=== PATIENT | female | born 1935 | race Caucasian/White ===

== ENCOUNTER 2023-02-15 22:57 | Inpatient (IN) | payer MEDICARE, OTHER ==
[~2023-02-15] VITALS: Ht 152.4 cm; Wt 90.7 kg
[2023-02-15] MEDS ORDERED: CEFEPIME 1 GM in IV D5W 50 ML IV ONE (23:30)
[2023-02-15] MEDS ORDERED: IV NS 0.9% 1,000 ML BAG IV ONE (23:30)
[2023-02-15] MEDS ORDERED: VANCOMYCIN 1 GM in IV D5W 250 ML IV ONE (23:30)
[2023-02-15 23:41] LABS: BASOPHILS # (AUTO) 0.1 K/uL (0.0-0.2); BASOPHILS % (AUTO) 0.4 % (0.0-2.0); HEMATOCRIT 33 % (33-45); HEMOGLOBIN 10.1 g/dL (11.5-14.8); LYMPHOCYTES # (AUTO) 1.6 K/uL (0.8-4.8); LYMPHOCYTES % (AUTO) 14.1 % (20.0-44.0); MEAN CORPUSCULAR HEMOGLOBIN 30 PG (26.0-33.0); MEAN CORPUSCULAR HGB CONC 30 g/dl (31.0-36.0); MEAN CORPUSCULAR VOLUME 99 fL (82-100); MONOCYTES # (AUTO) 0.8 K/uL (0.1-1.30); MONOCYTES % (AUTO) 7.2 % (2.0-12.0); NEUTROPHILS # (AUTO) 9.1 K/uL (1.8-8.9); NEUTROPHILS % (AUTO) 78.3 % (43.0-81.0); PLATELET COUNT (AUTO) 260 K/uL (150-450); RED BLOOD CELL COUNT(AUTO) 3.36 MIL/uL (4.0-5.2); RED CELL DISTRIBUTION WIDTH 22.4 % (11.5-15.0); WHITE BLOOD COUNT (AUTO) 11.7 K/uL (4.3-11.0)
[2023-02-15] MEDS ORDERED: CEFEPIME 1 GM VIAL ONE (23:47)
[2023-02-15 23:55] LABS: INR 1.09 (0.91-1.10); PARTIAL THROMBOPLASTIN TIME 30.4 SEC (24.3-34.3); PROTHROMBIN TIME 11.5 SECS (9.2-11.1)
[2023-02-15 23:58] LABS: CALCIUM, SERUM 7.6 mg/dL (8.5-10.1); CARBON DIOXIDE 22 mmol/L (21-32); CHLORIDE 107 mmol/L (98-107); CREATININE 1.1 mg/dL (0.6-1.3); GLUCOSE 143 mg/dL (74-106); POTASSIUM 5.8 mmol/L (3.5-5.1); SODIUM SERUM 133 mmol/L (136-145); UREA NITROGEN, BLOOD 39 mg/dL (7-18)
[2023-02-16 00:03] LABS: LACTIC ACID 0.8 mmol/L (0.4-2.0)
[2023-02-16 00:11] LABS: ALANINE AMINOTRANSFERASE 46 U/L (12-78); ALBUMIN 1.6 g/dL (3.4-5.0); ALKALINE PHOSPHATASE 194 U/L (46-116); ASPARTATE AMINOTRANSFERASE 121 U/L (15-37); BILIRUBIN,DIRECT 0.1 mg/dL (0.0-0.2); BILIRUBIN,TOTAL 0.3 mg/dL (0.2-1.0); TOTAL PROTEIN, SERUM 8.2 g/dL (6.4-8.2)
[2023-02-16] MEDS ORDERED: ONDANSETRON HCL/PF 4 MG/2 ML VIAL IVP PRN (01:00)
[2023-02-16] MEDS ORDERED: MAG HYDROX/AL HYDROX/SIMETH 30 ML UDC PO PRN (01:00)
[2023-02-16] MEDS ORDERED: IV NS 0.9% 1,000 ML IV PRN (01:00)
[2023-02-16] MEDS ORDERED: ACETAMINOPHEN 325 MG TABLET PO PRN (01:00)
[2023-02-16] MEDS ORDERED: MAGNESIUM HYDROXIDE 30 ML UDC PO PRN (01:00)
[2023-02-16] MEDS ORDERED: Z GUARD REMEDY 4 OZ OINT TP PRN (01:00)
[2023-02-16] MEDS ORDERED: VANCOMYCIN 500 MG VIAL ONE (01:01)
[2023-02-16 02:26] LABS: APPEARANCE,URINE CLEAR (CLEAR); BILIRUBIN,URINE NEGATIVE (NEGATIVE); BLOOD, URINE TRACE-INTA Ery/uL (NEGATIVE); COLOR,URINE YELLOW (YELLOW); KETONES,URINE NEGATIVE (NEGATIVE); LEUKOCYTE ESTERASE ,URINE NEGATIVE (NEGATIVE); NITRITE, URINE NEGATIVE (NEGATIVE); PROTEIN,URINE 1+ mg/dl (NEGATIVE); UGLUCOSE NEGATIVE (NEGATIVE)
[2023-02-16 02:49] LABS: ADD URINE CULTURE NO; BACTERIA,URINE None seen /HPF (None Seen); MUCUS,URINE Moderate /LPF (None Seen); RBC,URINE 0-2 /HPF (0-2); WBC,URINE 0-2 /HPF (0-3)
[2023-02-16] MEDS ORDERED: ALBUTEROL FS 2.5 MG/3 ML VIAL.NEB NEB ONE (04:30)
[2023-02-16] MEDS ORDERED: IPRATROPIUM NEB FS 0.5 MG/2.5 ML AMPUL.NEB NEB ONE (04:30)
[2023-02-16 04:46] LABS: POTASSIUM 5.4 mmol/L (3.5-5.1)
[2023-02-16] MEDS ORDERED: ALBUTEROL FS 2.5 MG/3 ML VIAL.NEB ONE (04:46)
[2023-02-16 04:51] VITALS: O2SAT 100
[2023-02-16 05:06] VITALS: O2SAT 95
[2023-02-16] MEDS ORDERED: FUROSEMIDE 20 MG/2 ML VIAL IV ONE (06:00)
[2023-02-16] MEDS ORDERED: FUROSEMIDE 20 MG/2 ML VIAL ONE (07:16)
[2023-02-16 07:17] LABS: ABG BASE EXCESS -1.4 mmol/L; ABG OXYGEN SATURATION 94.6 % (92.0-98.5); ABG PCO2 36.1 mmHg (35.0-45.0); ABG PH 7.418 (7.350-7.450); ABG PO2 73.5 mmHg (75.0-100.0); ABG TOTAL HEMOGLOBIN 10.9 G/dL (12.0-16.0); COHb 0.3 % (0.5-1.5); MetHb 0.4 % (0.0-1.5); O2Hb 93.9 % (94.0-97.0); SITE, ABG Right Radial; VENT MODE, BG SM 8 LPM
[2023-02-16] MEDS ORDERED: ACET-2605 GT (08:23)
[2023-02-16] MEDS ORDERED: ACET-868 GT (08:23)
[2023-02-16] MEDS ORDERED: DOCU50LI GT (08:23)
[2023-02-16] MEDS ORDERED: VORI200T4 GT (08:23)
[2023-02-16] MEDS ORDERED: FERR300L GT (08:23)
[2023-02-16] MEDS ORDERED: LACT-209 GT (08:23)
[2023-02-16] MEDS ORDERED: MERO1PIG IV (08:23)
[2023-02-16] MEDS ORDERED: ALBU2.5V38 IH (08:23)
[2023-02-16] MEDS ORDERED: GLUC1KIT IM (08:23)
[2023-02-16] MEDS ORDERED: EPOE200011 SQ (08:23)
[2023-02-16] MEDS ORDERED: PANT40SU2 GT (08:23)
[2023-02-16] MEDS ORDERED: SENN-261 GT (08:23)
[2023-02-16] MEDS ORDERED: DEXTROSE 50%-WATER 50 ML DISP.SYRIN IV PRN (10:00)
[2023-02-16] MEDS ORDERED: SENNOSIDES 8.6 MG TABLET GT PRN (10:30)
[2023-02-16 11:47] LABS: CALCIUM, SERUM 7.4 mg/dL (8.5-10.1)
[2023-02-16] MEDS: BLOOD SUGAR DIAGNOSTIC 1 EACH STRIP IN SCH ×3 (12:18→23:55)
[2023-02-16] MEDS ORDERED: DOCUSATE SODIUM 100 MG CAPSULE PO ONE (21:39)
[2023-02-16] MEDS: DOCUSATE SODIUM LIQ 100 MG/10 ML UDC GT SCH (21:48)
[2023-02-16] MEDS ORDERED: ZOLPIDEM TARTRATE 5 MG TABLET PO PRN (22:00)
[2023-02-16] MEDS ORDERED: DEXTROSE 50%-WATER 50 ML DISP.SYRIN ONE (23:56)
[2023-02-17] MEDS: IV NS 0.9% 500 ML IV PRN ×2 (00:08→16:01)
[2023-02-17] MEDS ORDERED: CEFEPIME 1 GM VIAL ONE (00:19)
[2023-02-17] MEDS: CEFEPIME 1 GM in IV D5W 50 ML IV SCH (00:26)
[2023-02-17] MEDS ORDERED: VANCOMYCIN 500 MG VIAL ONE (00:30)
[2023-02-17] MEDS: VANCOMYCIN HCL 0.75 GM in IV D5W 250 ML IV SCH (00:40)
[2023-02-17 05:53] LABS: BASOPHILS # (AUTO) 0.1 K/uL (0.0-0.2); BASOPHILS % (AUTO) 1.2 % (0.0-2.0); HEMATOCRIT 30 % (33-45); HEMOGLOBIN 9.2 g/dL (11.5-14.8); LYMPHOCYTES # (AUTO) 0.8 K/uL (0.8-4.8); LYMPHOCYTES % (AUTO) 11.5 % (20.0-44.0); MEAN CORPUSCULAR HEMOGLOBIN 31 PG (26.0-33.0); MEAN CORPUSCULAR HGB CONC 31 g/dl (31.0-36.0); MEAN CORPUSCULAR VOLUME 98 fL (82-100); MONOCYTES # (AUTO) 0.4 K/uL (0.1-1.30); NEUTROPHILS # (AUTO) 5.7 K/uL (1.8-8.9); NEUTROPHILS % (AUTO) 81.3 % (43.0-81.0); PLATELET COUNT (AUTO) 237 K/uL (150-450); RED BLOOD CELL COUNT(AUTO) 3.02 MIL/uL (4.0-5.2)
[2023-02-17 06:02] LABS: CALCIUM, SERUM 7.2 mg/dL (8.5-10.1); MAGNESIUM 2.3 mg/dL (1.8-2.4); PHOSPHORUS 4.1 mg/dL (2.5-4.9); POTASSIUM 4.5 mmol/L (3.5-5.1)
[2023-02-17] MEDS: BLOOD SUGAR DIAGNOSTIC 1 EACH STRIP IN SCH ×3 (06:10→17:54)
[2023-02-17 06:19] LABS: THYROID STIMULATING HORMONE 2.155 uIU/mL (0.358-3.74)
[2023-02-17] MEDS: FERROUS SULFATE UDC 300 MG/5 ML UDC GT SCH (10:06)
[2023-02-17] MEDS: INSULIN REGULAR, HUMAN 100 UNIT/ML 3 ML VIAL SQ PRN ×2 (12:12→17:55)
[2023-02-17] MEDS: GLUCERNA 1.2 1,000 ML BOTTLE NG PRN (12:14)
[2023-02-17] MEDS ORDERED: IV NS 0.9% 1,000 ML IV PRN (16:06)
[2023-02-17 20:00] VITALS: BP 126/47; TEMP 97.1; O2SAT 98
[2023-02-17] MEDS: DOCUSATE SODIUM LIQ 100 MG/10 ML UDC GT SCH (22:16)
[2023-02-18] MEDS: CEFEPIME 1 GM in IV D5W 50 ML IV SCH (01:10)
[2023-02-18] MEDS: VANCOMYCIN HCL 0.75 GM in IV D5W 250 ML IV SCH (02:15)
[2023-02-18 04:00] VITALS: BP 144/55; TEMP 98.1; O2SAT 100
[2023-02-18] MEDS: BLOOD SUGAR DIAGNOSTIC 1 EACH STRIP IN SCH ×4 (05:56→17:05)
[2023-02-18 06:20] LABS: BASOPHILS % (AUTO) 0.6 % (0.0-2.0); HEMATOCRIT 29 % (33-45); LYMPHOCYTES # (AUTO) 0.9 K/uL (0.8-4.8); LYMPHOCYTES % (AUTO) 14.5 % (20.0-44.0); MEAN CORPUSCULAR HEMOGLOBIN 31 PG (26.0-33.0); MEAN CORPUSCULAR HGB CONC 31 g/dl (31.0-36.0); MEAN CORPUSCULAR VOLUME 100 fL (82-100); MONOCYTES # (AUTO) 0.5 K/uL (0.1-1.30); MONOCYTES % (AUTO) 7.1 % (2.0-12.0); NEUTROPHILS # (AUTO) 5.1 K/uL (1.8-8.9); NEUTROPHILS % (AUTO) 77.8 % (43.0-81.0); PLATELET COUNT (AUTO) 226 K/uL (150-450); RED BLOOD CELL COUNT(AUTO) 2.88 MIL/uL (4.0-5.2); RED CELL DISTRIBUTION WIDTH 20.7 % (11.5-15.0); WHITE BLOOD COUNT (AUTO) 6.5 K/uL (4.3-11.0)
[2023-02-18 06:38] LABS: CALCIUM, SERUM 7.2 mg/dL (8.5-10.1); CREATININE 0.8 mg/dL (0.6-1.3); MAGNESIUM 2.1 mg/dL (1.8-2.4); PHOSPHORUS 2.6 mg/dL (2.5-4.9); POTASSIUM 4.9 mmol/L (3.5-5.1)
[2023-02-18] MEDS: FERROUS SULFATE UDC 300 MG/5 ML UDC GT SCH (08:30)
[2023-02-18] MEDS ORDERED: MAGNESIUM HYDROXIDE 30 ML UDC GT PRN (08:43)
[2023-02-18] MEDS ORDERED: ZOLPIDEM TARTRATE 5 MG TABLET GT PRN (08:43)
[2023-02-18] MEDS ORDERED: MAG HYDROX/AL HYDROX/SIMETH 30 ML UDC GT PRN (08:44)
[2023-02-18] MEDS ORDERED: ACETAMINOPHEN 650 MG/20.3 ML UDC GT PRN (09:00)
[2023-02-18] MEDS: ENOXAPARIN SODIUM 30 MG/0.3 ML DISP.SYRIN SQ SCH (16:35)
[2023-02-18] MEDS: GLUCERNA 1.2 1,000 ML BOTTLE NG PRN (16:39)
[2023-02-19] MEDS: DOCUSATE SODIUM LIQ 100 MG/10 ML UDC GT SCH ×2 (00:12→21:13)
[2023-02-19] MEDS: CEFEPIME 1 GM in IV D5W 50 ML IV SCH (01:17)
[2023-02-19] MEDS: VANCOMYCIN HCL 0.75 GM in IV D5W 250 ML IV SCH (02:29)
[2023-02-19] MEDS: BLOOD SUGAR DIAGNOSTIC 1 EACH STRIP IN SCH ×4 (06:00→17:43)
[2023-02-19 07:13] LABS: CALCIUM, SERUM 7.3 mg/dL (8.5-10.1); CREATININE 0.8 mg/dL (0.6-1.3); POTASSIUM 4.8 mmol/L (3.5-5.1)
[2023-02-19 08:00] VITALS: BP 141/53; TEMP 98.4; O2SAT 100
[2023-02-19] MEDS: FERROUS SULFATE UDC 300 MG/5 ML UDC GT SCH (09:08)
[2023-02-19] MEDS: ENOXAPARIN SODIUM 30 MG/0.3 ML DISP.SYRIN SQ SCH (09:08)
[2023-02-19] MEDS: GLUCERNA 1.2 1,000 ML BOTTLE NG PRN (12:31)
[2023-02-19 15:37] LABS: URINE SODIUM, RANDOM 104 mmol/l (40-220)
[2023-02-19 16:00] VITALS: BP 150/63; TEMP 98.6
[2023-02-19] MEDS ORDERED: ALBUTEROL HALF STRENGTH 1.25 MG/3 ML VIAL.NEB NEB PRN (18:30)
[2023-02-19 18:38] LABS: IRON, SERUM 14 ug/dl (50-175); TOTAL IRON BINDING CAPACITY 87 ug/dl (250-450)
[2023-02-19 19:09] LABS: FERRITIN 5020 ng/mL (8-388)
[2023-02-19 20:16] VITALS: BP 154/60; TEMP 97.9; O2SAT 100
[2023-02-19 20:22] VITALS: O2SAT 98
[2023-02-19 20:37] VITALS: O2SAT 99
[2023-02-20] VITALS: BP 158/52; TEMP 98.2; O2SAT 100
[2023-02-20] MEDS: BLOOD SUGAR DIAGNOSTIC 1 EACH STRIP IN SCH ×4 (00:23→18:01)
[2023-02-20] MEDS: INSULIN REGULAR, HUMAN 100 UNIT/ML 3 ML VIAL SQ PRN ×2 (00:23→06:18)
[2023-02-20] MEDS: CEFEPIME 1 GM in IV D5W 50 ML IV SCH (00:31)
[2023-02-20] MEDS: VANCOMYCIN HCL 0.75 GM in IV D5W 250 ML IV SCH (01:24)
[2023-02-20 04:30] VITALS: BP 163/80; TEMP 98.6; O2SAT 100
[2023-02-20 06:43] LABS: OCCULT BLOOD STOOL NEGATIVE (NEGATIVE)
[2023-02-20 07:39] LABS: BASOPHILS % (AUTO) 0.5 % (0.0-2.0); HEMATOCRIT 28 % (33-45); HEMOGLOBIN 8.8 g/dL (11.5-14.8); LYMPHOCYTES # (AUTO) 1.7 K/uL (0.8-4.8); LYMPHOCYTES % (AUTO) 27.8 % (20.0-44.0); MEAN CORPUSCULAR HEMOGLOBIN 31 PG (26.0-33.0); MEAN CORPUSCULAR HGB CONC 32 g/dl (31.0-36.0); MEAN CORPUSCULAR VOLUME 98 fL (82-100); MONOCYTES # (AUTO) 0.7 K/uL (0.1-1.30); MONOCYTES % (AUTO) 10.7 % (2.0-12.0); NEUTROPHILS # (AUTO) 3.8 K/uL (1.8-8.9); PLATELET COUNT (AUTO) 216 K/uL (150-450); RED BLOOD CELL COUNT(AUTO) 2.85 MIL/uL (4.0-5.2); RED CELL DISTRIBUTION WIDTH 19.7 % (11.5-15.0); WHITE BLOOD COUNT (AUTO) 6.2 K/uL (4.3-11.0)
[2023-02-20 07:58] LABS: ALANINE AMINOTRANSFERASE 23 U/L (12-78); ALKALINE PHOSPHATASE 153 U/L (46-116); ASPARTATE AMINOTRANSFERASE 27 U/L (15-37); BILIRUBIN,TOTAL 0.3 mg/dL (0.2-1.0); CALCIUM, SERUM 7.6 mg/dL (8.5-10.1); CARBON DIOXIDE 27 mmol/L (21-32); CHLORIDE 105 mmol/L (98-107); CREATININE 0.6 mg/dL (0.6-1.3); GLUCOSE 88 mg/dL (74-106); PHOSPHORUS 2.1 mg/dL (2.5-4.9); POTASSIUM 4.7 mmol/L (3.5-5.1); SODIUM SERUM 132 mmol/L (136-145); TOTAL PROTEIN, SERUM 6.5 g/dL (6.4-8.2); UREA NITROGEN, BLOOD 26 mg/dL (7-18)
[2023-02-20 08:00] VITALS: BP 177/72; TEMP 98.1; O2SAT 100
[2023-02-20 08:22] LABS: ALBUMIN 1.3 g/dL (3.4-5.0)
[2023-02-20] MEDS: ENOXAPARIN SODIUM 30 MG/0.3 ML DISP.SYRIN SQ SCH (09:55)
[2023-02-20] MEDS: FERROUS SULFATE UDC 300 MG/5 ML UDC GT SCH (09:57)
[2023-02-20] MEDS: CLONIDINE HCL 0.1 MG TABLET GT SCH ×2 (13:49→21:45)
[2023-02-20] MEDS: GLUCERNA 1.2 1,000 ML BOTTLE NG PRN (15:35)
[2023-02-20 16:00] VITALS: BP 157/61; TEMP 98.3; O2SAT 94
[2023-02-20] MEDS ORDERED: NEUTRA PHOS 1 POWD.PACKET NG ONE (17:00)
[2023-02-20 20:00] VITALS: BP 158/52; TEMP 98.2; O2SAT 100
[2023-02-20] MEDS: DOCUSATE SODIUM LIQ 100 MG/10 ML UDC GT SCH (21:46)
[2023-02-21] VITALS: BP 154/80; TEMP 98.7
[2023-02-21] MEDS: INSULIN REGULAR, HUMAN 100 UNIT/ML 3 ML VIAL SQ PRN ×3 (00:30→13:23)
[2023-02-21] MEDS: CEFEPIME 1 GM in IV D5W 50 ML IV SCH (00:37)
[2023-02-21] MEDS: VANCOMYCIN HCL 0.75 GM in IV D5W 250 ML IV SCH (00:40)
[2023-02-21] MEDS: BLOOD SUGAR DIAGNOSTIC 1 EACH STRIP IN SCH ×5 (06:00→17:48)
[2023-02-21] MEDS: CLONIDINE HCL 0.1 MG TABLET GT SCH ×2 (06:05→12:21)
[2023-02-21 06:53] VITALS: BP 150/60; TEMP 98; O2SAT 100
[2023-02-21 07:02] LABS: BASOPHILS % (AUTO) 0.2 % (0.0-2.0); HEMATOCRIT 32 % (33-45); LYMPHOCYTES # (AUTO) 2.4 K/uL (0.8-4.8); LYMPHOCYTES % (AUTO) 28.8 % (20.0-44.0); MEAN CORPUSCULAR HEMOGLOBIN 30 PG (26.0-33.0); MEAN CORPUSCULAR HGB CONC 31 g/dl (31.0-36.0); MEAN CORPUSCULAR VOLUME 98 fL (82-100); MONOCYTES # (AUTO) 0.8 K/uL (0.1-1.30); MONOCYTES % (AUTO) 8.9 % (2.0-12.0); NEUTROPHILS # (AUTO) 5.2 K/uL (1.8-8.9); NEUTROPHILS % (AUTO) 62.1 % (43.0-81.0); PLATELET COUNT (AUTO) 257 K/uL (150-450); RED CELL DISTRIBUTION WIDTH 20.3 % (11.5-15.0); WHITE BLOOD COUNT (AUTO) 8.5 K/uL (4.3-11.0)
[2023-02-21 07:07] LABS: *SPE A/G RATIO 0.5 (0.7-1.7); *SPE ALBUMIN 1.7 g/dL (2.9-4.4); *SPE ALPHA-1-GLOBULIN 0.3 g/dL (0.0-0.4); *SPE ALPHA-2-GLOBULIN 0.7 g/dL (0.4-1.0); *SPE BETA GLOBULIN 0.5 g/dL (0.7-1.3); *SPE GLOBULIN, TOTAL 3.7 g/dL (2.2-3.9); *SPE M-SPIKE 1.8 g/dL (Not Observed); *SPE PROTEIN TOTAL 5.4 g/dL (6.0-8.5); *SPEGAMMA GLOBULIN 2.2 g/dL (0.4-1.8)
[2023-02-21 07:35] LABS: ALBUMIN 1.5 g/dL (3.4-5.0); BILIRUBIN,TOTAL 0.4 mg/dL (0.2-1.0); CALCIUM, SERUM 7.9 mg/dL (8.5-10.1); CREATININE 0.8 mg/dL (0.6-1.3); PHOSPHORUS 1.9 mg/dL (2.5-4.9); POTASSIUM 4.5 mmol/L (3.5-5.1); TOTAL PROTEIN, SERUM 7.4 g/dL (6.4-8.2)
[2023-02-21 08:00] VITALS: BP 149/72; TEMP 98.2; O2SAT 100
[2023-02-21 08:10] LABS: IMMUNOGLOBULIN A, SERUM 53 mg/dL (64-422); IMMUNOGLOBULIN G, SERUM 2605 mg/dL (586-1602)
[2023-02-21] MEDS: FERROUS SULFATE UDC 300 MG/5 ML UDC GT SCH (08:54)
[2023-02-21] MEDS: ENOXAPARIN SODIUM 30 MG/0.3 ML DISP.SYRIN SQ SCH (08:55)
[2023-02-21 09:07] LABS: CANCER AG, 15-3 30.8 U/mL (0.0-25.0)
[2023-02-21] MEDS: GLUCERNA 1.2 1,000 ML BOTTLE NG PRN (11:44)
[2023-02-21 12:12] LABS: FREE KAPPA LT CHAINS SERUM 64.8 mg/L (3.3-19.4); FREE LAMBDA LT CHAIN SERUM 218.7 mg/L (5.7-26.3)
[2023-02-21 12:21] VITALS: BP 163/66
[2023-02-21 14:09] LABS: IMMUNOGLOBULIN M, SERUM 11 mg/dL (26-217)
[2023-02-21] MEDS ORDERED: NEUTRA PHOS 1 POWD.PACKET NG ONE (16:00)
== END 2023-02-21 18:30 | DRG 871 ==
LOC: ER 23:18 → TRANSITION 02-16 06:21 → TELE1 02-17 02:27 → MEDSG1 02-17 20:31 → TELE1 02-20 08:45
PROVIDERS: ADMIT Nurse Practitioner Acute Care
PROC: 05H533Z Insertion of Infusion Device into Right Subclavian Vein, Percutaneous Approach (ICD-10-PCS; principal; 2023-02-21)
PROC: B546ZZA Ultrasonography of Right Subclavian Vein, Guidance (ICD-10-PCS; 2023-02-21)
DX: A41.9 Sepsis, unspecified organism (principal); G93.41 Metabolic encephalopathy; I21.A1 Myocardial infarction type 2; J15.9 Unspecified bacterial pneumonia; J96.01 Acute respiratory failure with hypoxia; N17.0 Acute kidney failure with tubular necrosis; J12.9 Viral pneumonia, unspecified; E87.1 Hypo-osmolality and hyponatremia; J98.11 Atelectasis; J84.9 Interstitial pulmonary disease, unspecified; I82.622 Acute embolism and thrombosis of deep veins of left upper extremity; E11.9 Type 2 diabetes mellitus without complications; E86.0 Dehydration; E87.5 Hyperkalemia; E88.09 Other disorders of plasma-protein metabolism, not elsewhere classified; Z79.4 Long term (current) use of insulin; Z93.1 Gastrostomy status; F03.90 Unspecified dementia, unspecified severity, without behavioral disturbance, psychotic disturbance, mood disturbance, and anxiety; K59.00 Constipation, unspecified; F09 Unspecified mental disorder due to known physiological condition; L89.156 Pressure-induced deep tissue damage of sacral region; L89.216 Pressure-induced deep tissue damage of right hip; R22.2 Localized swelling, mass and lump, trunk; R13.10 Dysphagia, unspecified; D47.2 Monoclonal gammopathy; R59.0 Localized enlarged lymph nodes; M89.9 Disorder of bone, unspecified
CPT/HCPCS: 36410; 36415; 36600; 71045-TC; 71250-TC; 74018; 76641-TC; 80048-TC; 80053-TC; 80076-TC; 80202-TC; 81001; 82272-TC; 82378; 82607-TC; 82728-TC; 82784; 82962-TC; 83540-TC; 83605-TC; 83615-TC; 83735-TC; 83935-TC; 84100-TC; 84155; 84165; 84300-TC; 84443-TC; 84484-TC; 85025-TC; 85730-TC; 86300; 86334; 87040-TC; 87081-TC; 93307-TC; 93971-TC; 94799-TC; 97110-TC; 97530-TC; A4223; A6403; G0378; J0692; J1650; J1815; J1940; J3370; J7030; J7060